=== PATIENT | male | born 1950 | race Two or more races ===

== ENCOUNTER 2016-05-27 13:45 | Observation (INO) | payer BC ==
[2016-05-27] MEDS ORDERED: ASPIRIN 81 MG CHEWABLE TABLETS PO ONE (13:55)
--- NOTE | 2016-05-27 13:57 | PDOC ---
History of Present Illness - General History Source: Patient Exam Limitations: No Limitations - History of Present Illness Initial Comments: 05/27/16 14:08 The patient is a 65 year old male, with a significant past medical history of HTN (questionable), who presents to the emergency department with left sided chest pain for about 2 weeks. The patient reports his chest pain has been intermittent for about 1-2 weeks, ranking his pain a 5/10 in pain intensity. He describes the pain as a squeezing sensation and denies having these symptoms in the past. He denies any strenuous work activity and denies any recent injury or trauma. The patient reports also feeling dizzy during his episodes of chest pain. He denies any recent fevers, chills, headache or dizziness. He denies any recent nausea, vomit, diarrhea or constipation. Allergies: NKA Past surgical history: TKR, back surgery, and appendectomy Social History: Nonsmoker. Denies EtOH use and drug use. Family History: denies <Vargas Rios - Last Filed: 05/27/16 15:38> <Germán Stephens - Last Filed: 05/27/16 16:01> - General Chief Complaint: Chest Pain Stated Complaint: CHEST PAIN Time Seen by Provider: 05/27/16 13:52 Past History <Vargas Rios - Last Filed: 05/27/16 15:38> - Past Medical History Anemia: No Asthma: No Cancer: No Cardiac Disorders: No CVA: No COPD: No CHF: No Dementia: No Diabetes: No GI Disorders: No Disorders: No HTN: Yes (HX OF) Hypercholesterolemia: No Liver Disease: No Seizures: No Thyroid Disease: No - Surgical History Abdominal Surgery: Yes (HERNIA REPAIR) Appendectomy: Yes Cardiac Surgery: No Cholecystectomy: No Lung Surgery: No Neurologic Surgery: No Orthopedic Surgery: Yes (LEFT KNEE ARTHROSCOPY) - Psycho/Social/Smoking Cessation Hx Anxiety: No Suicidal Ideation: No Smoking History: Never smoked Have you smoked in the past 12 months: No Hx Alcohol Use: No Substance Use Type: None <Germán Stephens S - Last Filed: 05/27/16 16:01> - Past Medical History Allergies/Adverse Reactions: Allergies Allergy/AdvReac Type Severity Reaction Status Date / Time No Known Allergies Allergy Verified 05/27/16 13:47 Home Medications: Ambulatory Orders NK [No Known Home Medication] 05/27/16 Review of Systems - Review of Systems Constitutional: No: Symptoms Reported, Chills, Fever HEENTM: No: Symptoms Reported Respiratory: No: Symptoms reported Cardiac (ROS): Yes: Chest Pain, Lightheadedness ABD/GI: No: Symptoms Reported : No: Symptoms Reported Musculoskeletal: No: Symptoms Reported Integumentary: No: Symptoms Reported Neurological: Yes: Dizziness. No: Headache, Numbness, Paresthesia, Tingling, Weakness Endocrine: No: Symptoms Reported <Vargas Rios - Last Filed: 05/27/16 15:38> *Physical Exam - Vital Signs Last Vital Signs Temp Pulse Resp BP Pulse Ox 97.8 F 70 18 148/90 100 05/27/16 13:46 05/27/16 13:46 05/27/16 13:46 05/27/16 13:46 05/27/16 13:46 - Physical Exam General Appearance: Yes: Nourished, Appropriately Dressed. No: Apparent Distress HEENT: positive: EOMI, RAMONITA, Normal ENT Inspection, Normal Voice, TMs Normal, Pharynx Normal Neck: positive: Supple. negative: Tender Respiratory/Chest: positive: Lungs Clear, Normal Breath Sounds. negative: Respiratory Distress, Accessory Muscle Use Cardiovascular: positive: Regular Rhythm, Regular Rate Gastrointestinal/Abdominal: positive: Normal Bowel Sounds, Flat, Soft. negative : Tender Musculoskeletal: positive: Normal Inspection. negative: CVA Tenderness Extremity: positive: Normal Capillary Refill, Normal Inspection, Normal Range of Motion Integumentary: positive: Normal Color, Dry, Warm Neurologic: positive: bow maker II-XII NML intact, Fully Oriented, Alert, Normal Mood/ Affect, Normal Response, Motor Strength 5/5 <Vargas Rios - Last Filed: 05/27/16 15:38> Heart Score/ECG Review - ECG Impressions Comment:: 05/27/16 14:39 EKG received at 13:58 and interpreted by : Normal Sinus rhythm at 68 bpm with 1st degree AV block <Vargas Rios - Last Filed: 05/27/16 15:38> ED Treatment Course - LABORATORY CBC & Chemistry Diagram: 05/27/16 14:07 05/27/16 14:07 - RADIOLOGY Radiograph Interpretation: 05/27/16 15:15 CHEST X-RAY impressions reported by : No evidence of active pulmonary disease. - Medications Given in the ED: ED Medications Discontinued Medications Generic Name Dose Route Start Last Admin Trade Name Linda PRN Reason Stop Dose Admin Aspirin 162 mg 05/27/16 13:55 05/27/16 14:04 Asa - PO 05/27/16 13:56 162 mg ONCE ONE Administration <Vargas Rios - Last Filed: 05/27/16 15:38> - LABORATORY CBC & Chemistry Diagram: 05/27/16 14:07 05/27/16 14:07 <Germán Stephens - Last Filed: 05/27/16 16:01> *DC/Admit/Observation/Transfer - Attestations Scribe Attestion: 05/27/16 14:09 Documentation prepared by Vargas Rios, acting as medical language specialist for Germán Stephens MD. <Vargas Rios - Last Filed: 05/27/16 15:38> - Discharge Dispostion Admit: Yes <Germán Stephens - Last Filed: 05/27/16 16:01> Diagnosis at time of Disposition: Chest pain Qualifiers: Chest pain type: unspecified Qualified Code(s): R07.9 - Chest pain, unspecified - Discharge Dispostion Condition at time of disposition: Stable - Referrals Referrals: Vargas Reddy MD [Primary Care Provider] -
[2016-05-27] MEDS ORDERED: ASPIRIN 81 MG CHEWABLE TABLETS ONE (14:02)
[2016-05-27] MEDS ORDERED: NITROGLYCERIN SUBLINGUAL 1/150 0.4 MG TAB SL ONE (14:06)
[2016-05-27] MEDS ORDERED: NITROGLYCERIN SUBLINGUAL 1/150 0.4 MG TAB ONE (14:30)
[2016-05-27 14:33] LABS: MCH 30.7 pg (25.7-33.7); MCHC 34.1 g/dl (32.0-35.9); MEAN PLT VOLUME 8.5 fl (7.5-11.1); PLATELET COUNT 214 K/MM3 (134-434); RDW 11.7 % (11.9-15.9); WHITE BLOOD COUNT 7.4 K/mm3 (4.0-10.0)
[2016-05-27 15:06] LABS: ALBUMIN 4.2 g/dl (3.5-5.0); ALK PHOS 44 U/L (32-92); ANION GAP 5 (8-16); BILIRUBIN,TOTAL 0.8 mg/dl (0.2-1.0); CALCIUM 8.6 mg/dl (8.4-10.2); CO2 27 mmol/L (22-28); CREATININE 0.9 mg/dl (0.6-1.3); GLUCOSE,RANDOM 106 mg/dl (74-106); SGOT/AST 25 U/L (10-42); SGPT/ALT 23 U/L (10-40); TOT PROT 6.9 g/dl (6.4-8.3)
[2016-05-27 15:13] LABS: TROPONIN I (DFP) < 0.03 ng/ml (0.03-0.50)
[2016-05-27 15:27] LABS: CPK(DFH) 81 IU/L (38-174)
[2016-05-27] MEDS ORDERED: NITROGLYCERIN 2% OINTMENT - 1GM PACKET TD ONE ×2 (16:14→16:26)
--- NOTE | 2016-05-27 16:38 | CON.CARD ---
Consult Consult Specialty:: Cardiology Referred by:: Trung Ziegler ED Reason for Consultation:: Chest pain - History of Present Illness Chief Complaint: Chest pain History of Present Illness: The patient is a 65 year old male, with a significant past medical history of HTN who presents to the emergency department with intermittent effort-related left sided chest tightness for about 2 weeks associated with dyspnea and light- headedness especially while going up inclines improved with rest and SL NTG. The patient denies associated sxs of palpitations, orthopnea, PND, LE edema. Allergies: NKA Past surgical history: TKR, back surgery, and appendectomy Social History: Nonsmoker. Denies EtOH use and drug use. Family History: denies - History Source History Provided By: Patient Limitations to Obtaining History: No Limitations - Past Medical History Cardio/Vascular: Yes: HTN - Alcohol/Substance Use Hx Alcohol Use: No - Smoking History Smoking history: Never smoked Have you smoked in the past 12 months: No Home Medications - Allergies Allergies/Adverse Reactions: Allergies Allergy/AdvReac Type Severity Reaction Status Date / Time No Known Allergies Allergy Verified 05/27/16 13:47 - Home Medications Home Medications: Ambulatory Orders NK [No Known Home Medication] 05/27/16 Review of Systems - Review of Systems Cardiovascular: reports: Chest Pain, Shortness of Breath Neurological: reports: Dizziness Vital Signs: Vital Signs Temperature 97.8 F 05/27/16 13:46 Pulse Rate 68 05/27/16 16:28 Respiratory Rate 18 05/27/16 16:28 Blood Pressure 138/89 05/27/16 16:28 O2 Sat by Pulse Oximetry (%) 100 05/27/16 16:28 Constitutional: Yes: No Distress, Calm Neck: Yes: Supple Respiratory: Yes: Regular, CTA Bilaterally Gastrointestinal: Yes: Normal Bowel Sounds, Soft Cardiovascular: Yes: Regular Rate and Rhythm JVD: No Carotid Bruit: No Heart Sounds: Yes: S1, S2 Edema: No - Other Data Labs, Other Data: CBC, BMP 05/27/16 14:07 05/27/16 14:07 Troponin, BNP 05/27/16 14:07 Troponin I < 0.03 L Troponin, BNP 05/27/16 14:07 Troponin I < 0.03 L NSR @ 68 1[address] deg AVB Imaging - Results Chest X-ray: Report Reviewed (03/08/17 15:15 CHEST X-RAY impressions reported by : No evidence of active pulmonary disease.) Problem List - Problems (1) Chest pain Code(s): R07.9 - CHEST PAIN, UNSPECIFIED Qualifiers: Chest pain type: precordial chest pain Qualified Code(s): R07.2 - Precordial pain (2) Hypertension Code(s): I10 - ESSENTIAL (PRIMARY) HYPERTENSION Qualifiers: Hypertension type: essential hypertension Qualified Code(s): I10 - Essential (primary) hypertension Assessment/Plan 1. Chest pain syndrome with need to r/o CAD 2. HTN P:1. Ruling out [place], check TSH, lipid panel 2. Start ASA 81 qd, Toprol XL 25 qd 3. Stress echo in AM to r/o ischemia, further recommendations 4. Thank you for consultative opportunity
[2016-05-27] MEDS: METOPROLOL SUCCINATE 25 MG TAB.SR.24H (FP) PO SCH (17:57)
[2016-05-27 18:52] VITALS: BMI 24.5
--- NOTE | 2016-05-28 01:21 | HP ---
CHIEF COMPLAINT: Left sided chest pain PCP: Dr. Reddy HISTORY OF PRESENT ILLNESS: This is a 65 year old male with a past medical history of Hypertension (no meds x 3yrs). Syncope (14 yrs ago). Who presents to the emergency department for intermittent L-sided chest pain x2 weeks. Patient also reports having increased BEAULIEU, dizziness from walking inclines, with relief at rest. Patient reports periods of nausea without vomiting. Patient denies familial hx- cardiac. Patient denies fever, chills, cough, AP, N/V/D, dysuria. ER course was notable for: (1) Cardiac Enzymes - negative (2) Chest Xray- No active pulmonary disease (3) Recent Travel: None PAST MEDICAL HISTORY: HTN PAST SURGICAL HISTORY: TKR Social History: Smoking: None Alcohol: Occasional beer Drugs: None Family History: Non-contributory Allergies No Known Allergies Allergy (Verified 05/27/16 13:47) HOME MEDICATIONS: Home Medications Medication Instructions Recorded NK [No Known Home Medication] 05/27/16 REVIEW OF SYSTEMS CONSTITUTIONAL: Absent: fever, chills, diaphoresis, generalized weakness, malaise, loss of appetite, weight change HEENT: Absent: rhinorrhea, nasal congestion, throat pain, throat swelling, difficulty swallowing, mouth swelling, ear pain, eye pain, visual changes CARDIOVASCULAR: chest pain Absent: syncope, palpitations, irregular heart rate, lightheadedness, peripheral edema RESPIRATORY: Absent: cough, shortness of breath, dyspnea with exertion, orthopnea, wheezing, stridor, hemoptysis GASTROINTESTINAL: Absent: abdominal pain, abdominal distension, nausea, vomiting, diarrhea, constipation, melena, hematochezia GENITOURINARY: Absent: dysuria, frequency, urgency, hesitancy, hematuria, flank pain, genital pain MUSCULOSKELETAL: Absent: myalgia, arthralgia, joint swelling, back pain, neck pain SKIN: Absent: rash, itching, pallor HEMATOLOGIC/IMMUNOLOGIC: Absent: easy bleeding, easy bruising, lymphadenopathy, frequent infections ENDOCRINE: Absent: unexplained weight gain, unexplained weight loss, heat intolerance, cold intolerance NEUROLOGIC: dizziness Absent: headache, focal weakness or paresthesias, unsteady gait, seizure, mental status changes, bladder or bowel incontinence PSYCHIATRIC: Absent: anxiety, depression, suicidal or homicidal ideation, hallucinations. PHYSICAL EXAMINATION Vital Signs - 24 hr 05/27/16 05/27/1605/27/17 17:54 20:31 21:02 Pulse Rate 63 Pulse Rate [ 74 Right] Respiratory 18 18 18 Rate Blood Pressure 144/83 [Left Arm] O2 Sat by Pulse 97 97 97 Oximetry (%) GENERAL: Awake, alert, and fully oriented, in no acute distress. HEAD: Normal with no signs of trauma. EYES: Pupils equal, round and reactive to light, extraocular movements intact, sclera anicteric, conjunctiva clear. No lid lag. EARS, NOSE, THROAT: Ears normal, nares patent, oropharynx clear without exudates. Moist mucous membranes. NECK: Normal range of motion, supple without lymphadenopathy, JVD, or masses. LUNGS: Breath sounds equal, clear to auscultation bilaterally. No wheezes, and no crackles. No accessory muscle use. HEART: Regular rate and rhythm, normal S1 and S2 without murmur, rub or gallop. Non reproducible CP ABDOMEN: Soft, nontender, not distended, normoactive bowel sounds, no guarding, no rebound, no masses. No hepatomegaly or splenomegaly. MUSCULOSKELETAL: Normal range of motion at all joints. No bony deformities or tenderness. No CVA tenderness. UPPER EXTREMITIES: 2+ pulses, warm, well-perfused. No cyanosis. No clubbing. Cap refill <2 seconds. No peripheral edema. LOWER EXTREMITIES: 2+ pulses, warm, well-perfused. No calf tenderness. No peripheral edema. NEUROLOGICAL: Cranial nerves II-XII intact. Normal speech. Gait not observed. PSYCHIATRIC: Cooperative. Good eye contact. Appropriate mood and affect. SKIN: Warm, dry, normal turgor, no rashes or lesions noted. Laboratory Results - last 24 hr 05/27/16 05/27/16 05/27/16 14:07 14:07 14:07 WBC 7.4 RBC 5.43 Hgb 16.6 Hct 48.9 MCV 90.0 MCHC 34.1 RDW 11.7 L Plt Count 214 MPV 8.5 Neutrophils % 75.0 D Lymphocytes % 12.0 D Monocytes % 10.0 Band Neutrophils 3.0 Sodium 135 L Potassium 4.0 Chloride 103 Carbon Dioxide 27 Anion Gap 5 L BUN 16 Creatinine 0.9 Creat Clearance w eGFR > 60 Random Glucose 106 Calcium 8.6 Total Bilirubin 0.8 AST 25 D ALT 23 D Alkaline Phosphatase 44 Creatine Kinase 81 Troponin I < 0.03 L Total Protein 6.9 Albumin 4.2 ASSESSMENT/PLAN: This is a 65 y/o male with a PMHx of HTN (not on meds). Who presents to the ED with l-sided CP x 2 weeks. Problems: 1. Chest Pain r/o OR vs ACS 2. HTN 3. DVT prophylaxis FEN - PO Fluids -Replete K as need - NPO after midnight for testing, later resume DVT Prophylaxis - OOB - Heparin SQ Code Status: Full Code Dispo: Tele Observation, Stress Echo in am, Serial Enzymes Problem List - Problem (1) Chest pain Assessment/Plan: - r/o OR vs ACS - HEART Score 4 - DANIEL 0 - Continue Tele monitoring - Cardiology following - Serial Enzymes - Chest Xray- No acute pathology - Stress Echo in am - TSH, HgbA1C, Lipid Panel in am - Asa - BB Code(s): R07.9 - CHEST PAIN, UNSPECIFIED Qualifiers: Chest pain type: precordial chest pain Qualified Code(s): R07.2 - Precordial pain (2) Hypertension Assessment/Plan: - Per patient he has been off of the Ramipril 3 years ago - Monitor BP - Started BB - Monitor renal function Code(s): I10 - ESSENTIAL (PRIMARY) HYPERTENSION Qualifiers: Hypertension type: essential hypertension Qualified Code(s): I10 - Essential (primary) hypertension (3) DVT prophylaxis Assessment/Plan: - OOB - SCDs - Heparin SQ Code(s): [id number] - Visit type - Emergency Visit Emergency Visit: Yes ED Registration Date: 05/27/16 Care time: The patient presented to the Emergency Department on the above date and was hospitalized for further evaluation of their emergent condition. - New Patient This patient is new to me today: Yes Date on this admission: 05/27/16 - Critical Care Critical Care patient: No
[2016-05-28 08:53] LABS: CPK(DFH) 53 IU/L (38-174)
[2016-05-28 09:00] LABS: CALCIUM 8.6 mg/dl (8.4-10.2); CREATININE 0.9 mg/dl (0.6-1.3); MAGNESIUM 1.9 mg/dL (1.8-2.4); PHOSPHOROUS 2.4 mg/dl (2.5-4.6)
[2016-05-28 09:04] LABS: BASOPHIL 0.6 % (0-2.0); EOSINOPHIL 2.5 % (0-4.5); MCH 30.6 pg (25.7-33.7); MCHC 33.6 g/dl (32.0-35.9); MEAN CELL VOLUME 91.2 fl (80-96); MEAN PLT VOLUME 8.4 fl (7.5-11.1); NEUTROPHILS 62.3 % (42.8-82.8); PLATELET COUNT 206 K/MM3 (134-434); RDW 11.8 % (11.9-15.9)
[2016-05-28] MEDS: ASPIRIN 81 MG CHEWABLE TABLETS PO SCH (09:35)
[2016-05-28] MEDS ORDERED: ASPIRIN 81 MG CHEWABLE TABLETS PO SCH (10:00)
[2016-05-28 10:25] LABS: TROPONIN I (DFP) < 0.03 ng/ml (0.03-0.50)
--- NOTE | 2016-05-28 13:53 | PN ---
[id number] pain OBJECTIVE: patient is a 65 year old male with a past medical history of Hypertension, patient was admitted from the emergency department for chest pain r/o acs. Vital Signs Period Temp Pulse Resp BP Sys/Abraham Pulse Ox Last 24 Hr 97.7 F 63-74 18-18 116-144/63-83 94-97 GENERAL: The patient is awake, alert, and fully oriented, in no acute distress. HEAD: Normal with no signs of trauma. EYES: PERRL, extraocular movements intact, sclera anicteric, conjunctiva clear. No ptosis. ENT: Ears normal, nares patent, oropharynx clear without exudates, moist mucous membranes. NECK: Trachea midline, full range of motion, supple. LUNGS: Breath sounds equal, clear to auscultation bilaterally, no wheezes, no crackles, no accessory muscle use. HEART: Regular rate and rhythm, S1, S2 without murmur, rub or gallop. ABDOMEN: Soft, nontender, nondistended, normoactive bowel sounds, no guarding, no rebound, no hepatosplenomegaly, no masses. EXTREMITIES: 2+ pulses, warm, well-perfused, no edema. NEUROLOGICAL: Cranial nerves II through XII grossly intact. Normal speech, gait not observed. PSYCH: Normal mood, normal affect. SKIN: Warm, dry, normal turgor, no rashes or lesions noted Laboratory Results - last 24 hr 05/28/16 05/28/16 05/28/16 07:55 07:55 07:55 WBC 8.0 RBC 5.01 Hgb 15.4 Hct 45.7 MCV 91.2 MCHC 33.6 RDW 11.8 L Plt Count 206 MPV 8.4 Neutrophils % 62.3 Lymphocytes % 26.4 D Monocytes % 8.2 Eosinophils % 2.5 Basophils % 0.6 Sodium 136 Potassium 4.0 Chloride 106 Carbon Dioxide 27 Anion Gap 3 L BUN 13 Creatinine 0.9 Random Glucose 91 Calcium 8.6 Phosphorus 2.4 L Magnesium 1.9 Creatine Kinase 53 Troponin I < 0.03 L Triglycerides 70 Cholesterol 133 Total LDL Cholesterol 87 HDL Cholesterol 32 D Active Medications Generic Name Dose Route Start Last Admin Trade Name Freq PRN Reason Stop Dose Admin Aspirin 81 mg 05/28/16 10:00 05/28/16 09:35 Asa - PO 81 mg DAILY AURELIO Administration Metoprolol Succinate 25 mg 05/27/16 17:30 05/27/16 17:57 Toprol Xl - PO 25 mg DAILY AURELIO Administration ASSESSMENT/PLAN: 1) cardioology chest pain r/o acs - pending stress echo - troponin x 2 - mutlipfocal pvc's noted on cardiac monitoring, maintain K above 4.0, continue lopressor hypertension - b/p at goal continue lopressor FEN - PO Fluids -Replete K as need - NPO after midnight for testing, later resume DVT Prophylaxis - OOB - Heparin SQ Code Status: Full Code Dispo: Tele Observation, Stress Echo in am, Serial Enzymes Visit type - Emergency Visit Emergency Visit: Yes ED Registration Date: 05/27/16 Care time: The patient presented to the Emergency Department on the above date and was hospitalized for further evaluation of their emergent condition. - New Patient This patient is new to me today: Yes Date on this admission: 05/28/16 - Critical Care Critical Care patient: No - Discharge Referral Referred to [facility] Med P.C.: Yes Physician Referral: Vargas Reddy MD (Int Med)
--- NOTE | 2016-05-28 13:58 | EKG ---
Test Reason : Blood Pressure : / mmHG Vent. Rate : 068 BPM Atrial Rate : 068 BPM P-R Int : 224 ms QRS Dur : 102 ms QT Int : 396 ms P-R-T Axes : 058 010 028 degrees QTc Int : 421 ms SINUS RHYTHM WITH 1ST DEGREE A-V BLOCK WHEN COMPARED WITH ECG OF 15-AUG-2010 12:25, [place] INTERVAL HAS INCREASED Confirmed by MD SHARON, YEE ([id number]) on 05/28/2016 1:57:36 PM Referred By: Carlyle Bradford Confirmed By:YEE HERRERA MD
--- NOTE | 2016-05-28 14:15 | PN ---
Progress Note, Physician History of Present Illness: Chest pain and dyspnea improved, await stress testing. - Current Medication List Current Medications: Active Medications Aspirin (Asa -) 81 mg PO DAILY [facility] Last Admin: 05/28/16 09:35 Dose: 81 mg Metoprolol Succinate (Toprol Xl -) 25 mg PO DAILY [facility] Last Admin: 05/27/16 17:57 Dose: 25 mg - Objective Vital Signs: Vital Signs Temperature 98.3 F 05/28/16 14:05 Pulse Rate 76 05/28/16 14:05 Respiratory Rate 18 05/28/16 14:05 Blood Pressure 127/78 05/28/16 14:05 O2 Sat by Pulse Oximetry (%) 94 L 05/28/16 05:02 Constitutional: Yes: No Distress, Calm Neck: Yes: Supple Cardiovascular: Yes: Regular Rate and Rhythm Respiratory: Yes: Regular, CTA Bilaterally Gastrointestinal: Yes: Normal Bowel Sounds, Soft Edema: No Labs: CBC, BMP 05/28/16 07:55 05/28/16 07:55 Problem List - Problems (1) Chest pain Code(s): R07.9 - CHEST PAIN, UNSPECIFIED Qualifiers: Chest pain type: precordial chest pain Qualified Code(s): R07.2 - Precordial pain (2) Hypertension Code(s): I10 - ESSENTIAL (PRIMARY) HYPERTENSION Qualifiers: Hypertension type: essential hypertension Qualified Code(s): I10 - Essential (primary) hypertension (3) Premature ventricular complex Code(s): I49.3 - VENTRICULAR PREMATURE DEPOLARIZATION Assessment/Plan 1. Chest pain syndrome with need to r/o CAD 2. HTN 3. PVC P:1. Ruled out [place], check TSH 2. Continue ASA 81 qd, Toprol XL 25 qd 3. Stress echo in AM to r/o ischemia, further recommendations to follow
[2016-05-28 14:51] LABS: THYROID STIMULATING HORMONE 1.1 uIU/ml (0.358-3.74)
[2016-05-29] MEDS ORDERED: ACETAMINOPHEN 325 MG TABLET (FP) PO PRN (04:34)
[2016-05-29 06:39] VITALS: BP 130/77; PULSE 66; TEMP 98.2
--- NOTE | 2016-05-29 09:14 | DS ---
[id number]:This is a 65 year old male with a past medical history of Hypertension (no meds x 3yrs). Syncope (14 yrs ago). Who presents to the emergency department for intermittent L-sided chest pain x2 weeks. Patient also reports having increased BEAULIEU, dizziness from walking inclines, with relief at rest. Patient reports periods of nausea without vomiting. Patient denies familial hx- cardiac. Patient denies fever, chills, cough, AP, N/V/D, dysuria. ER course was notable for: (1) Cardiac Enzymes - negative (2) Chest Xray- No active pulmonary disease Vital Signs Period Temp Pulse Resp BP Sys/Abraham Pulse Ox Last 24 Hr 98.2 F-98.6 F 64-76 17-19 125-130/8-78 95 PHYSICAL EXAM GENERAL: The patient is awake, alert, and fully oriented, in no acute distress. HEAD: Normal with no signs of trauma. EYES: PERRL, extraocular movements intact, sclera anicteric, conjunctiva clear. ENT: Ears normal, nares patent, oropharynx clear without exudates, moist mucous membranes. NECK: Trachea midline, full range of motion, supple. LUNGS: Breath sounds equal, clear to auscultation bilaterally, no wheezes, no crackles, no accessory muscle use. HEART: Regular rate and rhythm, S1, S2 without murmur, rub or gallop. ABDOMEN: Soft, nontender, nondistended, normoactive bowel sounds, no guarding, no rebound, no hepatosplenomegaly, no masses. EXTREMITIES: 2+ pulses, warm, well-perfused, no edema. NEUROLOGICAL: Cranial nerves II through XII grossly intact. Normal speech, gait not observed. PSYCH: Normal mood, normal affect. SKIN: Warm, dry, normal turgor, no rashes or lesions noted. LABS Laboratory Results - last 24 hr 05/28/16 05/28/16 07:55 07:55 Sodium 136 Potassium 4.0 Chloride 106 Carbon Dioxide 27 Anion Gap 3 L BUN 13 Creatinine 0.9 Random Glucose 91 Calcium 8.6 Phosphorus 2.4 L Magnesium 1.9 Creatine Kinase 53 Troponin I < 0.03 L Triglycerides 70 Cholesterol 133 Total LDL Cholesterol 87 HDL Cholesterol 32 D TSH 1.10 D Laboratory Tests 05/27/16 05/28/16 14:07 07:55 Troponin I < 0.03 L < 0.03 L HOSPITAL COURSE: patient was admitted from the emergency department for chest pain r/o acs. Tropponin x 2 wnl. EKG nsr with 1st degree block, pt was noted to have multifocal pvc on cardiac monitoring. Cardiology, Dr Wade was consulted. patient was placed on lopressor 25mg daily. Stress echo is negative for any ischemiia. Date of Admission:05/27/16 Date of Discharge: 05/29/16 Minutes to complete discharge: 45 Discharge Summary Reason For Visit: CHEST PAIN Current Active Problems Chest pain (Acute) DVT prophylaxis (Acute) Hypertension (Acute) Premature ventricular complex (Acute) Condition: Improved - Instructions Diet, Activity, Other Instructions: resume regular low sodium diet Continue taking Lopressor as prescribed Please restrict caffeine intake to one cup of coffee daily please follow up with the air bag builder within one week Return to the emergency department immediately with ANY new, persistent or worsening symptoms. You MUST call and follow up with your doctor tomorrow. Please make sure your doctor reviews the results of your hospital stay. Referrals: Vargas Reddy MD [Primary Care Provider] - Carlyle Wade MD [Staff Physician] - Disposition: HOME - Home Medications Comprehensive Discharge Medication List: Ambulatory Orders NK [No Known Home Medication] 05/27/16 This patient is new to me today: No Emergency Visit: Yes ED Registration Date: 05/27/16 Care time: The patient presented to the Emergency Department on the above date and was hospitalized for further evaluation of their emergent condition. Critical Care patient: No - Discharge Referral Referred to [facility] Med P.C.: Yes Physician Referral: Vargas Reddy MD (Int Med)
[2016-05-29] MEDS: ASPIRIN 81 MG CHEWABLE TABLETS PO SCH (10:08)
[2016-05-29] MEDS: METOPROLOL SUCCINATE 25 MG TAB.SR.24H (FP) PO SCH (10:09)
== END 2016-05-29 11:00 | disposition home or self-care (01) ==
LOC: FER 13:45 → FM/S 17:13
PROVIDERS: ADMIT Internal Medicine; ATTEND Nurse Practitioner Family
DX: R07.89 Other chest pain (principal); I10 Essential (primary) hypertension; I49.3 Ventricular premature depolarization
CPT/HCPCS: 36415; 71010-TC; 80048; 80053; 80061; 82550; 83735; 84100; 84443; 84484; 85025; 93005; 93351; 99283-25; G0378